=== PATIENT | female | born 1995 | race Caucasian/White ===

== ENCOUNTER 2017-01-16 21:20 | Emergency (ER) | payer OTHER ==
[2017-01-16 21:56] VITALS: BP 104/67; PULSE 103; TEMP 98; BMI 23.1
[2017-01-16] MEDS ORDERED: PENICILLIN G BENZATHINE 1,200,000 UNIT/2 ML PFS IM ONE (22:16)
[2017-01-16] MEDS ORDERED: IBUPROFEN 400 MG TABLET (FP) PO ONE ×2 (22:16→22:22)
--- NOTE | 2017-01-16 22:20 | PDOC ---
History of Present Illness - General Chief Complaint: Cold Symptoms Stated Complaint: COLD SYMPTOMS Time Seen by Provider: 01/16/17 21:58 History Source: Patient - History of Present Illness Timing/Duration: reports: other Associated Symptoms: reports: fever/chills, nasal congestion, sore throat. denies: cough, earache, muscle aches Past History - Past Medical History Allergies/Adverse Reactions: Allergies Allergy/AdvReac Type Severity Reaction Status Date / Time No Known Allergies Allergy Verified 01/16/17 21:52 Home Medications: Ambulatory Orders NK [No Known Home Medication] 01/11/16 Asthma: No Cancer: No Cardiac Disorders: No Diabetes: No HTN: No Seizures: No Thyroid Disease: No - Psycho/Social/Smoking Cessation Hx Anxiety: No Suicidal Ideation: No Smoking Status: No Smoking History: Never smoked Number of Cigarettes Smoked Daily: 0 Hx Alcohol Use: No Drug/Substance Use Hx: No Substance Use Type: None Hx Substance Use Treatment: No Review of Systems - Review of Systems Constitutional: Yes: Fever HEENTM: Yes: Nose Congestion, Throat Pain. No: Ear Pain Respiratory: No: Cough *Physical Exam - Vital Signs Last Vital Signs Temp Pulse Resp BP Pulse Ox 98 F 103 H 18 104/67 98 01/16/17 21:53 01/16/17 21:53 01/16/17 21:53 01/16/17 21:53 01/16/17 21:53 - Physical Exam General Appearance: Yes: Appropriately Dressed. No: Apparent Distress HEENT: positive: Normal Voice, Tonsillar Exudate, Other (no uvular deviation). negative: Scleral Icterus (R), Scleral Icterus (L) Neck: positive: Supple. negative: Lymphadenopathy (R), Lymphadenopathy (L) Respiratory/Chest: positive: Lungs Clear, Normal Breath Sounds. negative: Respiratory Distress Cardiovascular: positive: Regular Rate, S1, S2 Integumentary: positive: Dry, Warm Neurologic: positive: Fully Oriented, Alert, Normal Mood/Affect Medical Decision Making - Medical Decision Making 01/16/17 22:18 21-year-old male female, no significant history, here with malaise with nasal congestion, sore throat and subj fever 5 days. No ear pain, cough, shortness of breath, nausea, vomiting or diarrhea. No sick contacts. Patient well- appearing and stable with bilateral tonsillar enlargement with exudative lesions concerning for strep. Will treat empirically (pt prefers bicillin). Anticipate discharge with supportive treatment as needed 01/16/17 22:19 01/16/17 22:19 *DC/Admit/Observation/Transfer Diagnosis at time of Disposition: Sore throat, Malaise - Discharge Dispostion Disposition: HOME Condition at time of disposition: Good - Patient Instructions Printed Discharge Instructions: DI for Strep Throat Additional Instructions: Continue to take [id number] medication as needed and maintain adequate hydration. - Post Discharge Activity Work/School Note: Parent(s) Back to Work Note
== END 2017-01-16 22:43 | disposition home or self-care (01) ==
LOC: JERFT 21:20
DX: J02.9 Acute pharyngitis, unspecified (principal); R53.81 Other malaise
CPT/HCPCS: 99281-25

== ENCOUNTER 2021-10-18 21:37 | Emergency (ER) | payer OTHER ==
[2021-10-18 21:56] VITALS: BP 106/66; PULSE 78; TEMP 98.9; BMI 24.0
== END 2021-10-18 23:03 | disposition home or self-care (01) ==
LOC: JER 21:37
DX: U07.1 COVID-19 (principal)
CPT/HCPCS: 87804; 99283-25; C9803-CS; U0003; U0005

== ENCOUNTER 2023-08-10 23:18 | Emergency (ER) | payer OTHER ==
[2023-08-10 23:27] VITALS: BP 110/68; PULSE 92; RESP 18; TEMP 98.8; BMI 26.5
[2023-08-11] MEDS ORDERED: DEXAMETHASONE 4 MG TABLET (FP) PO ONE (00:41)
[2023-08-11] MEDS ORDERED: DEXAMETHASONE 4 MG TABLET (FP) ONE (00:44)
== END 2023-08-11 00:47 | disposition home or self-care (01) ==
LOC: JER 23:18
DX: J02.9 Acute pharyngitis, unspecified (principal); R05.9 Cough, unspecified; B34.9 Viral infection, unspecified; Z20.822 Contact with and (suspected) exposure to COVID-19
CPT/HCPCS: 0241U-QW; 87070; 87651; 99283-25

== ENCOUNTER 2024-10-15 19:28 | Emergency (ER) | payer OTHER ==
[2024-10-15 19:41] VITALS: BP 116/79; PULSE 86; RESP 16; TEMP 99; BMI 24.7
[2024-10-15 21:47] LABS: THROAT:GRP A STREP NOT DETECTED (NOTDETECTED)
== END 2024-10-15 20:00 | disposition home or self-care (01) ==
LOC: FER 19:28
DX: J02.9 Acute pharyngitis, unspecified (principal); J10.1 Influenza due to other identified influenza virus with other respiratory manifestations; B34.9 Viral infection, unspecified; R50.9 Fever, unspecified; M79.10 Myalgia, unspecified site; R51.9 Headache, unspecified; Z20.822 Contact with and (suspected) exposure to COVID-19
CPT/HCPCS: 0241U-QW; 87651; 99283-25